=== PATIENT | female | born 1995 | race African-American/Black ===

== ENCOUNTER 2025-09-08 19:12 | Emergency (ER) | payer OTHER, SELFPAY ==
[2025-09-08 19:40] VITALS: BP 101/67
--- NOTE | 2025-09-08 22:13 | ED.GENMED ---
History of Present Illness
General
Chief Complaint: Foreign Body Removal
Source: patient and other ([employer] Term guards)
Exam Limitations: none
Time Seen by Provider: 09/08/25 21:47
Nursing documentation reviewed up to this point in time: agreed with
History of Present Illness
History of Present Illness:
30-year-old female presents emergency department due to a boil on her right thigh, and concern for a foreign body in her vagina. Guards were concerned that she put a silver object in her vagina.
Past History
Past History
ED Past Medical History: CVA, NIDDM, Psychiatric (Bipolar, anxiety, depression, PTSD) and Other (Hiradenitis suppurativa)
ED Past Surgical History: None
Social History
Tobacco: Non-smoker
Alcohol: None
Drug: None
Living: [facility]
Review of Systems
Review of Systems
Allergies reviewed?: Yes
All Other Systems: Not applicable
Constitutional: Reports no symptoms
EENT: Reports no symptoms
Respiratory: Reports no symptoms
Cardiac: Reports no symptoms
ABD/GI: Reports no symptoms
: Reports no symptoms
Musculoskeletal: Reports no symptoms
Skin: Reports other (Boil right inner thigh)
Neurological: Reports no symptoms
Endocrine: Reports no symptoms
Hematologic/Lymphatic: Reports no symptoms
Psychiatric: Reports no symptoms
Phy Exam
Physical Exam
Physical Exam:
Physical Exam
General: no apparent distress, not acutely ill
Neck: supple. no meningeal signs. normal posterior pharynx
Heart: s1/s2 regular rate and rhythm, no murmur. equal radial
pulses.
HEENT: Pupils equal round reactive to light, EOMI
Lungs: no acute respiratory distress. clear bilaterally
Abdomen: normal bowel sounds. not tender. no CVAT
Neuro: alert and oriented. no focal neurological deficits cranial nerves II through XII intact
Skin: no rash
Psychiatric: well kept. interactive and cooperative
Extremities: no edema. no calf tenderness. negative homans. good distal pulses, right leg reveals cyst, mildly tender, not ballotable
Patient declines speculum exam, but consents to external vaginal exam, which reveals no foreign bodies.
Course
Vital Signs
Initial and Last Documented VS:
Initial Vital Signs
Temp Pulse Resp BP Pulse Ox
97.7 F 78 20 101/67 95
09/08/25 19:40 09/08/25 19:40 09/08/25 19:40 09/08/25 19:40 09/08/25 19:40
Last Documented Vital Signs
Temp Pulse Resp BP Pulse Ox
97.7 F 78 20 101/67 95
09/08/25 19:40 09/08/25 19:40 09/08/25 19:40 09/08/25 19:40 09/08/25 19:40
MDM/Problems Addressed
Differential Diagnosis Includes:
Vaginal foreign body, abscess
MDM/Problems Addressed:
30-year-old female with right leg cyst, not drainable, but will treat with Keflex. Patient to follow-up with [facility]. Patient declined speculum exam. Patient declined x-ray.
Chronic conditions affecting care: Psychiatric illness (Anxiety, bipolar)
*Pulse Oximetry
SaO2: 95
Oxygen Mode of Delivery: Room air
Patient hypoxic: no
*Critical Care Note
Total Time (30-74mins, 75-104mins- exclusive of procedures): Not Applicable
Data Reviewed
Further Testing Considered But Not Given:
Speculum exam declined by patient
Patient Management
Social determinants of health affecting care: Living situation and Poor social support
Escalation/DeEscalation of care consider admission/obs:
Admit not indicated
ED Attending Note
-
Portions of this chart may have been created with voice recognition software.� Occasional wrong word or��sound alike� substitutions may have occurred due to the inherent limitations of voice recognition software.
Discharge Plan
Departure
Patient Disposition: Long Term
Date of Disposition: 09/08/25
Time of Disposition: 22:29
Patient with high blood pressure during this ER visit?: No
Condition: Good
Discharge Problem:
Hidradenitis suppurativa
Instructions: Boil - ED (DC)
Prescriptions:
New
cephalexin 500 mg capsule
500 mg PO TID 7 Days Qty: 21 0RF
Referrals:
[facility] [Family Provider, General] - Call in 1-3 days for appt
Interventions
Interventions:
*Risk Screen - Suicide Last Done: 09/08/25 20:00
*General Assessment Last Done: 09/08/25 19:56
*ED COVID-19 Vaccine History Last Done: 09/08/25 19:48
*ED Influenza Vaccine History Last Done: 09/08/25 19:48
[facility] Fall Risk Assessment Tool Last Done: 09/08/25 19:13
Discharge Date and Time
Print Language: BULGARIAN
[2025-09-08] MEDS: KEFLEX 500 MG PO (23:36)
== END 2025-09-09 00:05 ==
LOC: EMR 19:12
PROVIDERS: EMERGENCY PHYSICIAN Emergency Medicine
DX: L73.2 Hidradenitis suppurativa (principal); E11.9 Type 2 diabetes mellitus without complications; F31.9 Bipolar disorder, unspecified; F41.9 Anxiety disorder, unspecified; F43.10 Post-traumatic stress disorder, unspecified; Z86.73 Personal history of transient ischemic attack (TIA), and cerebral infarction without residual deficits
CPT/HCPCS: 99283